=== PATIENT | female | born 1990 | race Caucasian/White ===

== ENCOUNTER 2018-06-14 15:04 | Emergency (ER) | payer SELFPAY ==
[~2018-06-14] VITALS: Ht 170.2 cm; Wt 81.8 kg
[~2018-06-14 15:04] MED LIST: BRETHINE5 MG PO; CIPRO500 MG OR; NO; NO MEDS; PRENATAL VIT1 TAB OR
[2018-06-14] MEDS ORDERED: SEROQUEL25 MG PO (15:16)
[2018-06-14] MEDS ORDERED: TORADOL PO (16:00)
[2018-06-14 16:05] VITALS: BP 114/63
== END 2018-06-14 16:05 | disposition home or self-care (01) | DRG 605 ==
LOC: ED 15:04
DX: S80.02XA Contusion of left knee, initial encounter (principal); W01.0XXA Fall on same level from slipping, tripping and stumbling without subsequent striking against object, initial encounter; Y93.01 Activity, walking, marching and hiking; Y92.000 Kitchen of unspecified non-institutional (private) residence as the place of occurrence of the external cause